=== PATIENT | male | born 1950 | race Caucasian/White ===

== ENCOUNTER 2024-05-13 14:00 | Emergency (ER) | payer OTHER, MEDICARE, SELFPAY ==
[2024-05-13 14:26] VITALS: BP 135/75; PULSE 67; RESP 17; TEMP 36.4; O2SAT 96; BMI 29.7
--- NOTE | 2024-05-13 14:29 | ECG_ITS ---
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 Measurements Intervals [place] Rate: 65 P: 49 MD: 153 QRS: 15 QRSD: 106 T: 43 QT: 400 QTc: 418 Interpretive Statements SINUS RHYTHM INCOMPLETE RIGHT BUNDLE BRANCH BLOCK [90+ ms QRS DURATION, TERMINAL R IN V1/V2, 40+ ms S IN I/aVL/V4/V5/V6] POSSIBLE ANTERIOR MYOCARDIAL INFARCTION , OF INDETERMINATE AGE [30 ms Q WAVE IN V3/V4, OR R < 0.2 mV IN V4] No previous ECG available for comparison Electronically Signed On 05-16-2024 12:41:14 FLAT FINISHER by Rogelio Alva M.D. [email or web address]
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
[2024-05-13] MEDS: HYDROcodone-acetaminophen 5-325 mg Tablet 1 TAB PO (16:49)
[2024-05-13 16:53] LABS: Basophils # 0.1 10^3/uL (0.0-0.1); Basophils % 0.8 %; Eosinophils # 0.2 10^3/uL (0.0-0.8); Eosinophils % 2.4 %; Lymphocytes # 1.3 10^3/uL (0.8-4.8); Lymphocytes % 19.8 %; Mean Corpuscular HGB Conc 32.9 g/dL (30-55); Mean Corpuscular Hemoglobin 30.5 pg (27-33); Mean Corpuscular Volume 92.9 fl (82-101); Mean Platelet Volume 9.6 fL (7.4-10.4); Monocytes # 0.6 10^3/uL (0.2-0.9); Monocytes % 8.5 %; Neutrophils # 4.43 10^3/uL (1.8-7.7); Neutrophils % 67.7 %; Nucleated Red Blood Cells % 0 %; Platelet Count 187 10^3/cmm (157-399); Red Blood Count 4.52 10^6/uL (3.85-5.65); Red Cell Distribution Width 13.4 % (12.1-15.1); White Blood Count 6.55 10^3/uL (3.29-11.43)
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
[2024-05-13 17:12] LABS: Alanine Aminotransferase 16 U/L (0-41); Albumin Level 4.5 g/dL (3.5-5.2); Alkaline Phosphatase 57 U/L (40-130); Aspartate Amino Transferase 18 U/L (0-40); Blood Urea Nitrogen 15 mg/dL (8-23); Calcium 9.2 mg/dL (8.5-10.5); Carbon Dioxide 26 mmol/L (22-29); Chloride 105 mmol/L (98-107); Creatinine Clr Calc Pharmacy 74.0975; Globulin 2.3 g/dL (1.3-4.6); Glucose 126 mg/dL (65-115); Osmolality Calculated 294 mOsm/kg (285-295); Sodium 141 mmol/L (136-145); Total Bilirubin 0.3 mg/dL (0.15-1.2); Total Protein 6.8 g/dL (6.6-8.7)
[2024-05-13 17:15] LABS: Troponin(5th) Baseline 7 ng/L (0-15)
[2024-05-13 17:17] LABS: Anion Gap 14.4 (5-19); Potassium 4.4 mmol/L (3.5-5.1)
[2024-05-13 17:25] VITALS: BP 128/69; PULSE 61; RESP 16; O2SAT 98
[2024-05-13 18:38] VITALS: BP 120/49; PULSE 68; O2SAT 98
== END 2024-05-13 18:39 | disposition home or self-care (01) ==
PROVIDERS: Physician Assistant; Emergency Provider Physician Assistant
DX: S20.219A Contusion of unspecified front wall of thorax, initial encounter (principal); V89.2XXA Person injured in unspecified motor-vehicle accident, traffic, initial encounter
CPT/HCPCS: 36415; 70450; 71045; 71250; 72125; 74176; 80053; 84484; 85025; 93005; 99285